=== PATIENT | male | born 1960 | race Caucasian/White ===

== ENCOUNTER 2021-06-01 18:46 | Emergency (ER) | payer BC ==
--- OUTSIDE RECORDS SUMMARY | 2021-06-01 18:49 | XMS REPORT | Continuity of Care Document ---
:1960 Author Organization [facility] t Address [address] [place] [address] [address] [place] [address] Care Team Providers Name Role Phone Ezequiel CHAVIS, I Attending Clinician Payers Payer Name Policy Type Policy Number Effective Date Expiration Date S ource Problems This patient has no known problems. Allergies, Adverse Reactions, Alerts Allergy Allergy Status Severity Reaction(s) Onset Inactive Treating Comm ents Source Name Type Date Date Clinician Topher Corrales Active [facility] ty to 2-24 [place] adverse 00:00: of reaction 00 Medicin s to e drug Social History Social Habit Start Date Stop Date Quantity Comments Source History [facility] Alcohol Std Drinks of Med icine History [facility] Alcohol Binge of Medicine Sex Assigned At [facility] llege of Medicine Alcohol intake 2019-08-27 2019-08-27 Current drinker [facility] 00:00:00 00:00:00 of alcohol of Medicine (finding) History [facility] 2019-08-27 2019-08-[address] [facility] ge Alcohol Frequency 00:00:00 00:00:00 of Medi cine Smoking Status Start Date Stop Date Source Never smoker [facility] o f Medicine Medications Ordered Filled Start Stop Current Ordering Indication Dosage Frequency Signature Comments Components Source Medication Medication Date Date Medication? Clinician (SIG) Name Name hydrocodone 2019-0 Yes TK 1 T PO B aylor -acetaminop 2-05 QD FOR 45 [facility] (NORCO) 00:00: DAYS of 10-325 MG 00 Medicin per tablet e meloxicam 2020-0 Yes TK 1 T PO [place] donis (MOBIC) 15 1-31 QD [facility] MG tablet 00:00: of 00 Medicin e Vital Signs Vital Name Observation Time Observation Value Comments Source Systolic blood 2019-08-27 23:46:00 118 mm[Hg] [facility] pressure Medicine Diastolic blood 2019-08-27 23:46:00 75 mm[Hg] [facility] pressure Medicine Heart rate 2019-08-27 23:46:00 56 /min [facility] Body height 2019-08-27 23:46:00 180.3 cm [facility] Body weight 2019-08-27 23:46:00 79.379 kg [facility] BMI 2019-08-27 23:46:00 24.41 kg/m2 [facility] Procedures This patient has no known procedures. Plan of Care Planned Activity Planned Date Details Comments Source Future Scheduled TESTOSTERONE, Ordered: [facility] lege of Test FREE/TOTAL SHGB 08/27/2019 Medicine [code = NOCPT] Future Scheduled PROLACTIN [code = Ordered: [facility] Test 2842-3] 08/27/2019 Medicine Future Scheduled ESTRADIOL [code = Ordered: [facility] Test 2243-4] 08/27/2019 Medicine Future Scheduled LIPID PANEL [code = Ordered: [facility] Test 36490-0] 08/27/2019 Medicine Future Scheduled HEMATOCRIT [code = Ordered: [facility] of Test 4544-3] 08/27/2019 Medicine Future Scheduled DHEA-SULFATE [code = Ordered: [facility] Test 2191-5] 08/27/2019 Medicine Future Scheduled PSA,TOTAL AND FREE Ordered: [facility] of Test [code = 39524-0] 08/27/2019 Medicine Future Scheduled COLON CANCER [facility] ege of Test SCREENING: Medicine COLONOSCOPY [code = COLON CANCER SCREENING: COLONOSCOPY] Future Scheduled HEPATITIS C [facility] ege of Test SCREENING [code = Medicine HEPATITIS C SCREENING] Future Scheduled HIV SCREENING [code [facility] of Test = HIV SCREENING] Medicine Future Scheduled [facility] [code = FLU Medicine VACCINE > 6 MONTHS] Future Scheduled TETANUS SHOT (ADULT) [facility] Test [code = TETANUS SHOT Medicin e (ADULT)] Encounters Start End Encounter Admission Attending Care Care Encounter Source Date/Time Date/Time Type Type Clinicians Facility Department ID 2019-08-27 2019-08-27 Office NASEEM Nieves [id number] [facility] 16:24:51 16:34:51 Visit Cullen Ross AMBULATOR [id number] [facility] [id number] [facility] [id number] [facility] 300 e Results This patient has no known results.
[2021-06-01 19:45] LABS: Absolute Lymphocytes (CBC) 1.2 K/uL (0.7-4.9); Basophils % 0.2 % (0-1.3); Hematocrit 36.3 % (39.6-49.0); Lymphocytes % 10.3 % (15.3-44.8); MPV 7.4 fL (7.6-11.3); RBC Red Blood Cell Count 4.08 M/uL (4.33-5.43)
[2021-06-01 20:01] LABS: Potassium 4.2 mmol/L (3.5-5.1)
--- NOTE | 2021-06-01 20:37 | RAD REPORT ---
EXAM DESCRIPTION: RAD - Chest Single View - 06/01/2021 8:26 pm CLINICAL HISTORY: FEVER Chest pain. COMPARISON: No comparisons FINDINGS: Portable technique limits examination quality. Interstitial lung markings are mildly prominent suggesting a mild viral infection. The heart is sera l in size. No displaced fractures.
--- NOTE | 2021-06-01 22:06 | ER ---
Nurse's Notes [facility] Name: Dima Villarreal Jr Age: 61 yrs Sex: Male : 1960 Arrival Date: 06/01/2021 Time: 18:48 Bed 8 Private MD: Diagnosis: Splenic Rupture;Perisplenic Hematoma Presentation: 06/01 20:12 Chief complaint: Patient states: " I called my GI doc about the pain over tw5 weekend. They did an telephone office visit and ordered a CT and blood work. Called me back and told me I had a ruptured spleen and to come to the ER.". Coronavirus screen: Vaccine status: Patient reports receiving the 2nd dose of the covid vaccine. Date October 22, 2020. Ebola Screen: Patient negative for fever greater than or equal to 101.5 degrees Fahrenheit, and additional compatible Ebola Virus Disease symptoms Patient denies exposure to infectious person. Patient denies travel to an Ebola-affected area in the 21 days before illness onset. Initial Sepsis Screen: Does the patient meet any 2 criteria? No. Patient's initial sepsis screen is negative. Does the patient have a suspected source of infection? No. Patient's initial sepsis screen is negative. Risk Assessment: Do you want to hurt yourself or someone else? Patient reports no desire to harm self or others. Onset of symptoms is unknown. Mechanism of Injury: No Mechanism of Injury. 20:12 Method Of Arrival: Ambulatory tw5 20:12 Acuity: URIEL 3 tw5 Triage Assessment: 20:16 General: Appears in no apparent distress. Behavior is calm, cooperative, appropriate tw5 for age. Pain: Complains of pain in left upper quadrant Pain currently is 4 out of 10 on a pain scale. Historical: - Allergies: 20:16 Codeine; tw5 - Home Meds: 20:16 Cefuroxime Oral 500 mg twice a day [Active]; tw - PMHx: 20:16 hep C- cured in 2016; tw - PSHx: 20:16 lower back x 3; tw5 - Immunization history:: Flu vaccine is not up to date. - Social history:: Smoking status: Patient/guardian denies using tobacco, the patient reports quitting approximately 30 years ago. Screenin:19 Abuse screen: Denies threats or abuse. Denies injuries from another. Nutritional tw5 screening: No deficits noted. Tuberculosis screening: No symptoms or risk factors identified. Fall Risk Secondary diagnosis (15 points) IV access (20 points). Assessment: 20:19 General: Patient reports that he had a fever, chills, and fatigue about two weeks, ago. tw5 The abdominal pain started last week. He stated " I didn't want to go to the doc over thanksgiving week, and I wanted to wait to see if the pain would get better. It didn't so I finally called my doc Dr. Eleazar Smith. He was the one that told me I had a ruptured Spleen.". Pain: Pain currently is 4 out of 10 on a pain scale. Neuro: Level of Consciousness is awake, alert, obeys commands, Oriented to person, place, time, situation. Cardiovascular: Heart tones S1 S2 present. Respiratory: Airway is patent Trachea midline Respiratory effort is even, unlabored. GI: Abdomen is non-distended, Bowel sounds present X 4 quads. Abdomen is tender to palpation in left upper quadrant. Vital Signs: 20:12 BP 120 / 80; Pulse 69; Resp 14; Temp 98.8; Pulse Ox 97% ; Weight 79.38 kg; Height 5 ft. tw5 11 in. (180.34 cm); Pain 4/10; 21:00 BP 128 / 72; Pulse 96; Resp 18; Pulse Ox 100% on R/A; df1 22:08 BP 126 / 75; Pulse 107; Resp 18; Pulse Ox 100% on R/A; df1 20:12 Body Mass Index 24.41 (79.38 kg, 180.34 cm) tw5 ED Course: 18:48 Patient arrived in ED. ds1 18:51 Grady Ingram PA is PHCP. jr8 18:51 Dennis Morel MD is Attending Physician. jr8 19:30 Inserted saline lock: 18 gauge in right forearm, using aseptic technique. Blood ds4 collected. 20:06 Purnima Toledo is Primary Nurse. tw5 20:09 [place] Screen Profile Sent. df1 20:09 Type and Screen Sent. df1 20:09 Basic Metabolic Panel Sent. df1 20:09 CBC with Diff Sent. df1 20:09 Type And Screen Sent. df1 20:16 Triage completed. tw5 20:16 Arm band placed on right wrist. tw5 20:19 Awaiting lab results. tw5 20:19 Initial lab(s) drawn, by ED staff, sent to lab. X-ray(s) taken. tw5 20:19 Patient has correct armband on for positive identification. Placed in gown. Bed in low tw5 position. Call light in reach. Side rails up X 1. site monitor on. Pulse ox on. NIBP on. Door closed. Noise minimized. Moved to private room. Warm blanket given. Verbal reassurance given. 20:23 [place] Screen Profile Sent. tw5 20:26 XRAY Chest (1 view) In Process Unspecified. EDMS 20:32 initiated a transfer with Sukumar Cordero from [facility]. mw2 20:45 COVID-19 SARS RT PCR (Document "Date of Onset" if Symptomatic) Sent. tw5 21:04 Sukumar Cordero from [facility] called stating "all [facility] are denying due mw2 to not having interventional Radiology.". 21:06 initiated a transfer with Bertha Reynaga from [facility] Transfer [place]. mw2 21:19 initiated a transfer with Naomie Chow from [facility] Transfer [facility]. mw2 21:24 connected Grady Liu with the Interventional Radiologist from [facility]. mw2 21:52 connected Grady LIU with Dr. Wheatley the Hospitalist from [facility]. mw2 22:09 No provider procedures requiring assistance completed. df1 22:09 administrative approval given by Bertha Reynaga/ patient has been accepted to [place] [address] bed 2409/ Dr. Wheatley accepted the patient in transfer/report to be called to [phone]. 22:39 Patient transferred, IV remains in place. tw5 Administered Medications: No medications were administered Outcome: 22:06 ER care complete, transfer ordered by MD. bosch 22:34 Transferred Note: Report called to Kenia RIOJAS. tw5 22:39 Condition: stable tw5 22:39 Instructed on the need for transfer. 22:55 Transferred by ground EMS tw5 22:55 Patient left the ED. tw5 Signatures: Dispatcher [employer] EDME Gaviota Ocasio ds1 Grady Ingram PA PA jr8 Swanson, Donovan ds4 Jose Raul Hernandez mw2 Urszula Morrison df1 Purnima Toledo tw5
--- NOTE | 2021-06-01 22:06 | EDPHYS ---
Physician Documentation [facility] Name: Dima Villarreal Jr Age: 61 yrs Sex: Male : 1960 Arrival Date: 06/01/2021 Time: 18:48 Bed 8 Private MD: ED Physician Dennis Morel HPI: 06/01 19:48 This 61 yrs old Male presents to ER via Unassigned with complaints of Ruptured Spleen. jr8 19:48 This is a 61-year-old male patient that presented to the emergency room after having an jr8 outpatient CT scan of the abdomen and pelvis completed for continued left upper quadrant pain. Patient stated for the past 2 weeks has had on and off fevers and night sweats. This past Tuesday started with left upper quadrant abdominal pain. Was able to have a CT scan completed today. Radiology called immediately noting that patient had a splenic rupture and was sent immediately to the emergency room. Patient alert and oriented upon arrival in no acute distress.. Historical: - Allergies: 20:16 Codeine; tw5 - Home Meds: 20:16 Cefuroxime Oral 500 mg twice a day [Active]; tw - PMHx: 20:16 hep C- cured in 2016; - PSHx: 20:16 lower back x 3; tw5 - Immunization history:: Flu vaccine is not up to date. - Social history:: Smoking status: Patient/guardian denies using tobacco, the patient reports quitting approximately 30 years ago. ROS: 19:48 Eyes: Negative for injury, pain, redness, and discharge, ENT: Negative for injury, jr8 pain, and discharge, Neck: Negative for injury, pain, and swelling, Cardiovascular: Negative for chest pain, palpitations, and edema, Respiratory: Negative for shortness of breath, cough, wheezing, and pleuritic chest pain, Back: Negative for injury and pain, MS/Extremity: Negative for injury and deformity, Skin: Negative for injury, rash, and discoloration, Neuro: Negative for headache, weakness, numbness, tingling, and seizure. 19:48 Constitutional: Positive for body aches, chills, fever. 19:48 Abdomen/GI: Positive for abdominal pain, Negative for nausea, vomiting, and diarrhea, hematemesis, black/tarry stool, rectal pain, rectal bleeding. Exam: 19:48 Constitutional: This is a well developed, well nourished patient who is awake, alert, jr8 and in no acute distress. Eyes: Pupils equal round and reactive to light, extra-ocular motions intact. Lids and lashes normal. Conjunctiva and sclera are non-icteric and not injected. Cornea within normal limits. Periorbital areas with no swelling, redness, or edema. ENT: Nares patent. No nasal discharge, no septal abnormalities noted. Tympanic membranes are normal and external auditory canals are clear. Oropharynx with no redness, swelling, or masses, exudates, or evidence of obstruction, uvula midline. Mucous membranes moist. Neck: Trachea midline, no thyromegaly or masses palpated, and no cervical lymphadenopathy. Supple, full range of motion without nuchal rigidity, or vertebral point tenderness. No Meningismus. Cardiovascular: Regular rate and rhythm with a normal S1 and S2. No gallops, murmurs, or rubs. Normal PMI, no JVD. No pulse deficits. Respiratory: Lungs have equal breath sounds bilaterally, clear to auscultation and percussion. No rales, rhonchi or wheezes noted. No increased work of breathing, no retractions or nasal flaring. Back: No spinal tenderness. No costovertebral tenderness. Full range of motion. Skin: Warm, dry with normal turgor. Normal color with no rashes, no lesions, and no evidence of cellulitis. MS/ Extremity: Pulses equal, no cyanosis. Neurovascular intact. Full, normal range of motion. Neuro: Awake and alert, GCS 15, oriented to person, place, time, and situation. Cranial nerves II-XII grossly intact. Motor strength 5/5 in all extremities. Sensory grossly intact. 19:48 Abdomen/GI: Inspection: bruising, umbilical area, Palpation: soft, in all quadrants, mild abdominal tenderness, in the left upper quadrant, mass, is not appreciated, rebound tenderness, is not appreciated, voluntary guarding, is not appreciated, involuntary guarding, is not appreciated, no appreciated organomegaly, Indicators: McBurney's point is not tender, Irwin's sign is negative, Rovsing's sign is negative, Liver: tenderness, is not appreciated. Vital Signs: 20:12 BP 120 / 80; Pulse 69; Resp 14; Temp 98.8; Pulse Ox 97% ; Weight 79.38 kg; Height 5 ft. tw5 11 in. (180.34 cm); Pain 4/10; 21:00 BP 128 / 72; Pulse 96; Resp 18; Pulse Ox 100% on R/A; df1 22:08 BP 126 / 75; Pulse 107; Resp 18; Pulse Ox 100% on R/A; df1 20:12 Body Mass Index 24.41 (79.38 kg, 180.34 cm) tw5 MDM: 18:52 Patient medically screened. jr8 22:04 Data reviewed: vital signs, nurses notes, lab test result(s), radiologic studies, CT jr scan, plain films. Data interpreted: Pulse oximetry: on room air is 97 %. Interpretation: normal. Counseling: I had a detailed discussion with the patient and/or guardian regarding: the historical points, exam findings, and any diagnostic results supporting the discharge/admit diagnosis, lab results, radiology results, the need to transfer to another facility, [facility] does not immediately have the required specialist. ED course: Discussed case with our general surgeon who agreed that it would be better if patient could go for IR to further watch over him and evaluate. As such we tried [facility] who accepted patient.. 06/01 18:51 Order name: Basic Metabolic Panel [facility] 06/01 18:51 Order name: CBC with Diff [facility] 06/01 18:51 Order name: Type And Screen [facility] 06/01 18:52 Order name: Basic Metabolic Panel; Complete Time: 20:02 [facility] 06/01 18:52 Order name: CBC with Automated Diff; Complete Time: 19:55 [facility] 06/01 18:52 Order name: Type and Screen [facility] 06/01 18:51 Order name: Labs collected and sent; Complete Time: 19:30 [facility] 06/01 19:23 Order name: [place] Screen Profile; Complete Time: 20:50 [facility] 06/01 19:55 Order name: XRAY Chest (1 view); Complete Time: 20:45 [facility] 06/01 20:37 Order name: COVID-19 SARS RT PCR (Document "Date of Onset" if Symptomatic); Complete [facility] Time: 22:04 Administered Medications: No medications were administered Disposition: 06/02 08:33 Co-signature as Attending Physician, Dennis Morel MD I agree with the assessment and elmer plan of care. Disposition Summary: 06/01/21 22:06 Transfer Ordered Transfer Location: [facility] jr8 Reason: Higher level of care jr8 Condition: Stable jr8 Problem: new jr8 Symptoms: are unchanged jr8 Accepting Physician: Dr. Vincent (06/01/21 22:55) tw5 Diagnosis - Splenic Rupture jr8 - Perisplenic Hematoma jr8 Forms: - Medication Reconciliation Form jr8 - SBAR form jr8 Signatures: Dispatcher [employer] EDNV Dennis Morel MD MD cha Roszak, Josh, PA PA jr8 Purnima Toledo tw5 Corrections: (The following items were deleted from the chart) 06/01 20:40 20:38 CORONAVIRUS+ ordered. [facility] 22:55 22:06 Dr. Vincent jr8 tw5
[2021-06-01 23:05] VITALS: TEMP 98.8
[2021-06-01 23:07] VITALS: O2SAT 100
[2021-06-01 23:08] VITALS: BP 126/75
== END 2021-06-01 22:55 | disposition short-term general hospital (02) ==
LOC: ER 18:46
DX: S36.09XA Other injury of spleen, initial encounter (principal); S36.029A Unspecified contusion of spleen, initial encounter; X58.XXXA Exposure to other specified factors, initial encounter; Z88.6 Allergy status to analgesic agent; Z20.822 Contact with and (suspected) exposure to COVID-19
CPT/HCPCS: 85025; 80048; 36415; 86900; 86850; 86308; 86901; 71045; 99285; U0003